=== PATIENT | female | born 1955 | race Caucasian/White ===

== ENCOUNTER 2017-06-15 09:31 | Emergency (ER) | payer OTHER ==
[2017-06-15] MEDS: SOD CHLORIDE 0.9% 1,000 ML IV (13:14)
[2017-06-15] MEDS: MECLIZINE 12.5 MG TAB PO (13:16)
[2017-06-15] MEDS ORDERED: HALOPERIDOL 5 MG INJ (13:18)
[2017-06-15] MEDS ORDERED: LORAZEPAM 2 MG INJ (13:18)
[2017-06-15 13:20] LABS: ADD MAN DIFF? NO
[2017-06-15] MEDS: ONDANSETRON 4 MG INJ IV (13:20)
[2017-06-15 13:22] LABS: BASOPHILS % 0.2 % (0.0-2.0); HEMATOCRIT 38.1 % (37.0-47.0); HEMOGLOBIN 12.5 g/dl (12.0-16.0); LYMPHOCYTES # 1.1 10^3/ul (0.8-2.9); LYMPHOCYTES % 12.5 % (15.0-51.0); MEAN CORPUSCULAR HEMOGLOBIN 29.1 pg (29.0-33.0); MEAN CORPUSCULAR HGB CONC 32.8 g/dl (32.0-37.0); MEAN CORPUSCULAR VOLUME 88.6 fl (82.0-101.0); MONOCYTE # 0.3 10^3/ul (0.3-0.9); MONOCYTES % 3.3 % (0.0-11.0); NEUTROPHIL # 7.3 10^3/ul (1.6-7.5); NEUTROPHILS % 83.4 % (39.0-77.0); PLATELET COUNT 272 10^3/UL (140-415); RED CELL DISTRIBUTION WIDTH 13.2 % (11.5-14.5)
[2017-06-15 13:22] LABS: WHITE BLOOD COUNT 8.8 10^3/ul (4.8-10.8)
[2017-06-15 13:37] LABS: INR 0.91; PROTIME 12.3 Sec (11.9-14.9)
[2017-06-15 13:40] LABS: ALANINE AMINOTRANSFERASE 33 IU/L (13-69); ALBUMIN/GLOBULIN RATIO 1.02; ALKALINE PHOSPHATASE 75 IU/L (42-121); ANION GAP 11 (8-16); ASPARTATE AMINO TRANSFERASE 26 IU/L (15-46); BILIRUBIN,INDIRECT 0.2 mg/dl (0-1.1); BILIRUBIN,TOTAL 0.2 mg/dl (0.2-1.3); BLOOD UREA NITROGEN 12 mg/dl (7-20); CARBON DIOXIDE 29 mmol/L (21-31); CHLORIDE 104 mmol/L (97-110); CREATINE KINASE 54 IU/L (23-200); CREATININE 0.63 mg/dl (0.44-1.00); GLUCOSE 115 mg/dl (70-220); POTASSIUM 3.9 mmol/L (3.5-5.1); SODIUM 140 mmol/L (135-144); TOTAL PROTEIN 7.9 g/dl (6.1-8.1)
[2017-06-15 13:53] LABS: B-TYPE NATRIURETIC PEPTIDE 131 PG/ML (0-125); CK INDEX 0.7; CK-MB 0.39 ng/ml (0.0-2.4); TROPONIN-I < 0.012 ng/ml (0.00-0.12)
[2017-06-15] MEDS: DIPHENHYDRAMINE 50 MG INJ IV (14:06)
[2017-06-15 14:13] LABS: ADD UMIC NO; UR AMORPHOUS CRYSTAL FEW /HPF (NONE SEEN); UR ASCORBIC ACID NEGATIVE (NEGATIVE); UR BACTERIA FEW /HPF (NONE SEEN); UR BILIRUBIN (Dip) NEGATIVE (NEGATIVE); UR BLOOD (Dip) NEGATIVE (NEGATIVE); UR CLARITY SLIGHTLY CLOUDY (CLEAR); UR COLOR YELLOW (YELLOW); UR GLUCOSE (Dip) NEGATIVE (NEGATIVE); UR KETONES (Dip) TRACE mg/dL (NEGATIVE); UR LEUKOCYTE ESTERASE (Dip) NEGATIVE Leu/ul (NEGATIVE); UR MUCUS FEW /HPF (NONE SEEN); UR NITRITE (Dip) NEGATIVE (NEGATIVE); UR RBC 0 /HPF (0-5); UR SPECIFIC GRAVITY (Dip) 1.009 (1.003-1.030); UR TOTAL PROTEIN (Dip) NEGATIVE (NEGATIVE); UR UROBILINOGEN (Dip) NEGATIVE (NEGATIVE); UR WBC 0 /HPF (0-5)
== END 2017-06-15 17:57 | disposition home or self-care (01) ==
LOC: E/R 09:31
DX: H81.392 Other peripheral vertigo, left ear (principal); R40.2142 Coma scale, eyes open, spontaneous, at arrival to emergency department; R40.2252 Coma scale, best verbal response, oriented, at arrival to emergency department; R40.2362 Coma scale, best motor response, obeys commands, at arrival to emergency department
CPT/HCPCS: 70450; 80053; 81001; 81003; 82550; 82553; 83880; 84484; 85025; 85610; 85730; 93005; 96374; 96375; 99285-25